=== PATIENT | female | born 1985 | race Caucasian/White ===

== ENCOUNTER 2018-06-07 12:22 | Emergency (ER) | payer MEDICAID, MEDICARE, OTHER ==
[2018-06-07 12:36] VITALS: BP 111/77
== END 2018-06-07 15:16 | disposition home or self-care (01) ==
LOC: EDBD 12:22 → ED 14:45
DX: M25.561 Pain in right knee (principal); M25.572 Pain in left ankle and joints of left foot; F17.200 Nicotine dependence, unspecified, uncomplicated
CPT/HCPCS: 99282